=== PATIENT | male | born 1965 | race Caucasian/White ===

== ENCOUNTER 2017-12-31 11:58 | Inpatient (IN) | payer SELFPAY ==
[~2017-12-31] VITALS: Ht 170.2 cm; Wt 77.8 kg
[2017-12-31 12:55] LABS: BASOPHIL % 1.2 % (0-2); PLATELET COUNT 245 x10^3mcL (130-400); RED CELL DISTRIBUTION WIDTH 12.6 % (11.5-14.5)
[2017-12-31 12:57] LABS: ALBUMIN 4.1 g/dL (3.4-5.0); ALKALINE PHOSPHATASE 131 U/L (46-116); ALT/SGPT 94 U/L (16-63); AST/SGOT 179 U/L (15-37); CARBON DIOXIDE 26.9 mmol/L (21-32); CHLORIDE SERUM 100 mmol/L (98-107); CREATININE SERUM 0.9 mg/dL (0.7-1.3); GFR1 > 60 mL/min; GLUCOSE SERUM 86 mg/dL (74-106); SODIUM SERUM 138 mmol/L (136-145); TOTAL PROTEIN, SERUM 7.7 g/dL (6.4-8.2)
[2017-12-31 12:59] LABS: POTASSIUM SERUM 2.9 mmol/L (3.5-5.1)
[2017-12-31 14:02] LABS: MAGNESIUM 1.7 mg/dL (1.8-2.4); PHOSPHOROUS 3.3 mg/dL (2.5-4.9)
[2017-12-31 14:05] LABS: CHOLESTEROL/HDL RATIO 1.6
[2017-12-31 14:10] LABS: FREE T4 1.06 ng/dL (0.76-1.46); FREE THYROXINE INDEX 2.4 ug/dL (1.4-4.5); T4(THYROXINE) 7.4 ug/dL (4.7-13.3)
[2017-12-31 14:53] LABS: T3 TOTAL 1.15 ng/mL
[2017-12-31 14:58] VITALS: BP 137/85
[2017-12-31 17:24] VITALS: BP 134/78
[2017-12-31 20:45] VITALS: BP 126/80
[2018-01-01 01:22] VITALS: BP 131/87
[2018-01-01 01:50] LABS: microscopic required? NO
[2018-01-01 02:00] LABS: UA SPECIFIC GRAVITY 1.025 (1.005-1.035); urine erythrocyte NEGATIVE (NEGATIVE)
[2018-01-01 02:36] LABS: AMPHETAMINE QUAL UR NONE DETECTED (See below)
[2018-01-01 05:30] VITALS: BP 135/88
[2018-01-01 07:57] LABS: CALCIUM 8.6 mg/dL (8.5-10.1); CARBON DIOXIDE 29.2 mmol/L (21-32); CHLORIDE SERUM 101 mmol/L (98-107); CREATININE SERUM 0.7 mg/dL (0.7-1.3); GFR1 > 60 mL/min; GLUCOSE SERUM 94 mg/dL (74-106); PHOSPHOROUS 2.6 mg/dL (2.5-4.9); POTASSIUM SERUM 3.5 mmol/L (3.5-5.1); SODIUM SERUM 141 mmol/L (136-145)
[2018-01-01 08:45] LABS: BASOPHIL % 0.5 % (0-2); PLATELET COUNT 222 x10^3mcL (130-400); RED CELL DISTRIBUTION WIDTH 13.2 % (11.5-14.5)
[2018-01-01 09:46] VITALS: BP 170/115
[2018-01-01 13:52] VITALS: BP 144/95
[2018-01-01 17:53] VITALS: BP 133/87
[2018-01-01 20:42] VITALS: BP 149/90
[2018-01-02 05:00] VITALS: BP 137/90
[2018-01-02 05:39] LABS: BASOPHIL % 0.5 % (0-2); PLATELET COUNT 212 x10^3mcL (130-400); RED CELL DISTRIBUTION WIDTH 12.5 % (11.5-14.5)
[2018-01-02 05:40] LABS: CALCIUM 8.8 mg/dL (8.5-10.1); CARBON DIOXIDE 27.9 mmol/L (21-32); CHLORIDE SERUM 102 mmol/L (98-107); CREATININE SERUM 0.7 mg/dL (0.7-1.3); GFR1 > 60 mL/min; GLUCOSE SERUM 102 mg/dL (74-106); MAGNESIUM 1.8 mg/dL (1.8-2.4); SODIUM SERUM 136 mmol/L (136-145)
[2018-01-02 05:46] LABS: POTASSIUM SERUM 2.9 mmol/L (3.5-5.1)
[2018-01-02 08:37] VITALS: BP 117/88; BP 179/88
[2018-01-02] MEDS ORDERED: NEU300 PO (11:40)
[2018-01-02] MEDS ORDERED: THERA-M CAPLET1 EACH PO (11:40)
[2018-01-02] MEDS ORDERED: LIB25 PO (11:40)
[2018-01-02 12:40] VITALS: BP 136/98
[2018-01-02 12:48] LABS: CALCIUM 8.9 mg/dL (8.5-10.1); CARBON DIOXIDE 30.1 mmol/L (21-32); CHLORIDE SERUM 103 mmol/L (98-107); CREATININE SERUM 0.8 mg/dL (0.7-1.3); GFR1 > 60 mL/min; GLUCOSE SERUM 117 mg/dL (74-106); POTASSIUM SERUM 3.6 mmol/L (3.5-5.1); SODIUM SERUM 136 mmol/L (136-145)
[2018-01-02 13:39] VITALS: BP 136/98
== END 2018-01-02 16:05 | disposition home or self-care (01) | DRG 205 ==
LOC: ED 11:58 → DU 13:07
PROVIDERS: Emergency Medicine; Family Medicine
DX: M94.0 Chondrocostal junction syndrome [Tietze] (principal); G92 Toxic encephalopathy; F10.230 Alcohol dependence with withdrawal, uncomplicated; Y90.9 Presence of alcohol in blood, level not specified; E87.6 Hypokalemia; R74.0 Nonspecific elevation of levels of transaminase and lactic acid dehydrogenase [LDH]; D53.1 Other megaloblastic anemias, not elsewhere classified; Z60.2 Problems related to living alone; S80.12XA Contusion of left lower leg, initial encounter; X58.XXXA Exposure to other specified factors, initial encounter; E83.42 Hypomagnesemia; Z71.41 Alcohol abuse counseling and surveillance of alcoholic; Z83.3 Family history of diabetes mellitus; Z82.49 Family history of ischemic heart disease and other diseases of the circulatory system; Y93.89 Activity, other specified; Y92.89 Other specified places as the place of occurrence of the external cause; Y99.8 Other external cause status
CPT/HCPCS: 83880; 84425; 84439; G0480; J2060; J3010; J3411; J3475; J3480; J3490; J7030; Q0092; Q0162